=== PATIENT | male | born 1970 | race Caucasian/White ===

== ENCOUNTER 2018-06-06 12:16 | Emergency (ER) | payer BC, OTHER ==
--- NOTE | 2018-06-06 13:06 | EDM.PDOC ---
ED HPI GENERAL MEDICAL PROBLEM - General Chief Complaint: Respiratory Problem Stated Complaint: HEART ISSUES Time Seen by Provider: 06/06/18 13:06 Source of Information: Reports: Patient History Limitations: Reports: No Limitations - History of Present Illness INITIAL COMMENTS - FREE TEXT/NARRATIVE: 47-year-old male presents the ED with severe paroxysmal cough. Patient states she's been coughing for close to a month but getting worse instead of better. Not bringing up much sputum production. Coughing until he throws up o He's lost most of his breakfast and dinner today. Intermittent fever and some chills and night sweats. States he is currently coughing so hard that he has torn the muscles in his upper abdominal wall and can barely sit or stand fully erect. Bilateral lower ribs hurt quite badly from coughing so much. He denies any hemoptysis. He states he's never had a cough like this. Currently working down in [employer] in the [employer]. Patient is still a smoker approximately a pack per day. He states he is trying to quit he will use to smoke 3 packs a day. Onset: Other (Cough started about a month ago.) Onset Date: 05/06/18 Duration: Week(s):, Getting Worse Location: Reports: Chest (Severe paroxysmal nonproductive cough to the point of emesis and severe pain throughout his abdominal wall musculature and chest and ribs.) Quality: Reports: Ache, Other (Joao pain pulling sharp stabbing in his abdominal wall from coughing so hard) Severity: Severe Improves with: Reports: None Worsens with: Reports: Other Context: Reports: Sick Contact ([employer]). Denies: Trauma, Other Associated Symptoms: Reports: Chest Pain, Cough (From coughing so hard), Diaphoresis (Night sweats), Fever/Chills, Loss of Appetite, Malaise, Nausea/ Vomiting, Shortness of Breath, Weakness. 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.) Chest Pain Score (Numeric/FACES): 7 - Related Data Allergies Allergy/AdvReac Type Severity Reaction Status Date / Time No Known Allergies Allergy Verified 06/06/18 12:29 Home Meds: Home Meds Doxycycline [Vibramycin] 100 mg PO BID #24 cap 06/06/18 [Rx] Fluticasone Propionate [Flovent HFA 110 MCG] 2 puff INH QID #1 mdi 06/06/18 [Rx] Hydrocodone/Chlorphen P-Stirex [Tussionex Pennkinetic Susp] 5 ml PO Q12H PRN # 60 ml 06/06/18 [Rx] metFORMIN [Glucophage] 500 mg PO BIDMEALS 06/06/18 [History] oxyCODONE HCl/Acetaminophen [Percocet 10-325 mg Tablet] 1 each PO Q4H #20 tablet 06/06/18 [Rx] predniSONE [Prednisone] 20 mg PO BID #14 tablet 06/06/18 [Rx] Past Medical History Cardiovascular History: Reports: Heart Murmur, Other (See Below) (Recently told that he had a heart murmur.) Social & Family History - Tobacco Use Smoking Status *Q: Current Every Day Smoker Years of Tobacco use: 30 Packs/Tins Daily: 1 - Caffeine Use Caffeine Use: Reports: Soda - Recreational Drug Use Recreational Drug Use: Yes Drug Use in Last 12 Months: Yes Recreational Drug Type: Reports: Marijuana/Hashish Recreational Drug Use Frequency: Daily - Living Situation & Occupation Living situation: Reports: Single Occupation: Employed ED ROS GENERAL - Review of Systems Review Of Systems: See Below Constitutional: Reports: Chills, Malaise, Weakness, Fatigue, Decreased Appetite. Denies: Fever HEENT: Reports: No Symptoms, Sinus Problem Respiratory: Reports: Shortness of Breath, Wheezing, Cough. Denies: Pleuritic Chest Pain Cardiovascular: Reports: Chest Pain, Blood Pressure Problem (From coughing so hard.), Dyspnea on Exertion, Lightheadedness. Denies: Claudication, Edema (At times from coughing so hard he nearly passes out), Orthopnea Endocrine: Reports: Fatigue GI/Abdominal: Reports: Abdominal Pain (Diffuse abdominal wall pain from coughing so much.) : Reports: No Symptoms Musculoskeletal: Reports: Back Pain Skin: Reports: No Symptoms Neurological: Reports: No Symptoms Psychiatric: Reports: No Symptoms ED EXAM, GENERAL - Physical Exam Exam: See Below Exam Limited By: No Limitations General Appearance: Alert, WD/WN, No Apparent Distress, Severe Distress (He is vomiting at the time of exam. Comparing of severe abdominal wall pain from coughing so much. Anytime he tries to take a deep breath he starts coughing.) Eye Exam: Bilateral Eye: Normal Inspection Ears: Normal TMs Nose: Nasal Swelling (Marked swelling of the turbinates bilaterally.) Throat/Mouth: Normal Inspection, Normal Lips, Normal Oropharynx Head: Atraumatic, Normocephalic Neck: Normal Inspection, Supple, Non-Tender, Full Range of Motion. No: Lymphadenopathy (L), Lymphadenopathy (R) Respiratory/Chest: Respiratory Distress, Decreased Breath Sounds ( Operations can take a full deep breath because he starts coughing right away decreased breath sounds to the lower 20% of lung miles bilaterally ), Wheezing, Splinting (Mild tachypnea at rest.). No: Rales, Rhonchi Cardiovascular: Normal Peripheral Pulses, Regular Rate, Rhythm, No Edema, No Gallop, No Murmur (Grade 1/6 systolic ejection murmur at the left lower sternal border.) Peripheral Pulses: 3+: Posterior Tibial (L), Posterior Tibial (R), Dorsalis Pedis (L), Dorsalis Pedis (R) GI/Abdominal: Other (Diffuse abdominal wall tenderness particularly right upper quadrant and left upper quadrant i.e. external obliques where they insert onto the ribs are very tender to touch. It is severely obese.) Back Exam: Normal Inspection, Full Range of Motion. No: CVA Tenderness (L), CVA Tenderness (R) Extremities: Normal Inspection, Normal Range of Motion, Non-Tender, No Pedal Edema Neurological: Alert, Oriented, CN II-XII Intact, Normal Cognition Skin Exam: Warm, Dry, Normal Color, No Rash EKG INTERPRETATION EKG Date: 06/06/18 Time: 12:25 Rhythm: NSR Rate (Beats/Min): 70 [place]: Normal P-Wave: Enlarged (Left atrial hypertrophy pattern) QRS: Other (Q waves V1 and V2 consider old anteroseptal myocardial infarction) ST-T: Normal QT: Normal EKG Interpretation Comments: Abnormal ECG Course - Vital Signs Last Recorded V/S: Last Vital Signs Temp 36.2 C 06/06/18 12:27 Pulse 70 06/06/18 12:27 Resp 18 06/06/18 12:27 BP 173/86 H 06/06/18 12:27 Pulse Ox 94 L 06/06/18 13:40 - Orders/Labs/Meds Orders: Active Orders 24 hr Category Date Time Status EKG Documentation Completion [RC] ASDIRECTED Care 06/06/18 13:33 Active RT Aerosol Therapy [RC] ASDIRECTED Care 06/06/18 13:11 Active Chest 2V [CR] Stat Exams 06/06/18 13:12 Taken EKG 12 Lead [EK] Stat Ther 06/06/18 13:33 Ordered Labs: Laboratory Tests 06/06/18 06/06/18 06/06/18 Range/Units 13:20 13:20 13:20 WBC 10.53 H (4.23-9.07) K/mm3 RBC 5.33 (4.63-6.08) M/mm3 Hgb 15.3 (13.7-17.5) gm/L Hct 46.4 (40.1-51.0) % MCV 87.1 (79.0-92.2) fl MCH 28.7 (25.7-32.2) pg MCHC 33.0 (32.2-35.5) g/dl RDW Std Deviation 45.1 H (35.1-43.9) fL Plt Count 303 (163-337) K/mm3 MPV 9.8 (9.4-12.3) fl Neutrophils % (Manual) 62 H (40-60) % Band Neutrophils % 0 (0-10) % Lymphocytes % (Manual) 27 (20-40) % Atypical Lymphs % 0 % Monocytes % (Manual) 10 (2-10) % Eosinophils % (Manual) 1 (0.8-7.0) % Basophils % (Manual) 0 L (0.2-1.2) Platelet Estimate Adequate RBC Morph Comment Normal Sodium 139 (136-145) mEq/L Potassium 3.9 (3.5-5.1) mEq/L Chloride 101 (98-107) mEq/L Carbon Dioxide 26 (21-32) mEq/L Anion Gap 15.9 H (5-15) BUN 15 (7-18) mg/dL Creatinine 1.1 (0.7-1.3) mg/dL Est Cr Clr Drug Dosing 87.56 mL/min Estimated GFR (MDRD) > 60 (>60) mL/min BUN/Creatinine Ratio 13.6 L (14-18) Glucose 135 H (74-106) mg/dL Calcium 9.4 (8.5-10.1) mg/dL Total Bilirubin 0.9 (0.2-1.0) mg/dL AST 25 (15-37) U/L ALT 42 (16-63) U/L Alkaline Phosphatase 100 (46-116) U/L NT-Pro-B Natriuret Pep 33 (0-125) pg/mL Total Protein 7.7 (6.4-8.2) g/dl Albumin 4.0 (3.4-5.0) g/dl Globulin 3.7 gm/dL Albumin/Globulin Ratio 1.1 (1-2) Mycoplasma pneumon IgM Negative (NEGATIVE) Meds: Medications Discontinued Medications Generic Name Dose Route Start Last Admin Trade Name Freq PRN Reason Stop Dose Admin Albuterol/Ipratropium 3 ml 06/06/18 13:11 06/06/18 13:37 Duoneb 3.0-0.5 Mg/3 Ml NEB 06/06/18 13:12 3 ml ONETIME ONE Administration Hydromorphone HCl 1 mg 06/06/18 13:11 06/06/18 13:27 Dilaudid IVPUSH 06/06/18 13:12 1 mg ONETIME ONE Administration Hydromorphone HCl 1 mg 06/06/18 14:28 06/06/18 14:42 Dilaudid IVPUSH 06/06/18 14:29 1 mg ONETIME ONE Administration Dextrose/Sodium Chloride 1,000 mls @ 500 mls/hr 06/06/18 13:15 06/06/18 13:26 Dextrose 5%-Normal Saline IV 500 mls/hr ASDIRECTED MARC Administration Metoclopramide HCl 10 mg 06/06/18 13:11 06/06/18 13:26 Reglan IVPUSH 06/06/18 13:12 10 mg ONETIME ONE Administration - Radiology Interpretation Free Text/Narrative:: 47-year-old male presents the ED with a severe paroxysmal relatively nonproductive cough for the better part of the month. States cough is getting worse and set of better. Rarely brings up any sputum. No hemoptysis. Intermittent night sweats perhaps some chills. He is very nasally congested and is aware of a postnasal drip. He has been taking DayQuil daily. Now coughing to the point of emesis. Complaining of diffuse abdominal wall tenderness in the distribution of the external oblique muscles from coughing so much. Coughing is also aggravating his chest wall and ribs from coughing so much. Today's coughing to the point of emesis. Has not been able to keep down his breakfast worse dinner. Plan IV D5 normal saline at 500 mils an hour. Given Dilaudid 1 mg IV and Reglan 10 mg IV and will receive a DuoNeb. Two-view chest x-ray to be obtained lab work to be done to include a mycoplasma titer. Clinically he does not have influenza. - Re-Assessments/Exams Free Text/Narrative Re-Assessment/Exam: 06/06/18 14:37 2 view chest x-ray does not show any sign of pneumonia. is still coughing paroxysmal we will repeat Dilaudid 1 mg IV as he is well over 300 pounds 06/06/18 15:24 White count is 10.53 with 60% neutrophils and no band cells. Hemoglobin is 15.3 with hematocrit of 46.4. Platelet count is 303,000. Sodium 139 with potassium of 3.9. Chloride 11 with a bicarbonate 26. And a gap is slightly elevated at 15.9. BUN is 15 with granular 1.1. GFR is greater than 60. Glucose is 135 with a calcium of 9.4. Liver function is normal. BNP is 33. Total protein 7.7 with an albumin fraction of 4.0. Mycoplasma pneumonia testing is 06/06/18 16:12 mycoplasma Titre is negative. Decision made because he is cut sinus congestion and postnasal drip to placement doxycycline 100 mg twice daily for the next 12 days to help clear up this infection. 2 we'll be a Flovent aerosol inhaler 2 puffs every 4 hours while awake to suppress his cough and reduce irritant receptor cough. I'm going to also place him on prednisone 20 mg twice a day for 7 days. Cough syrup will be Tussionex syrup 10 mils twice daily for cough relief. Departure - Departure Time of Disposition: 16:20 Disposition: Home, Self-Care 01 Condition: Fair Clinical Impression: Bronchitis Sinusitis Qualifiers: Sinusitis location: unspecified location Chronicity: acute Recurrence: non- recurrent Qualified Code(s): J01.90 - Acute sinusitis, unspecified Strain of abdominal wall Qualifiers: Encounter type: initial encounter Qualified Code(s): S39.011A - Strain of muscle, fascia and tendon of abdomen, initial encounter - Discharge Information *PRESCRIPTION DRUG MONITORING PROGRAM REVIEWED*: Not Applicable *COPY OF PRESCRIPTION DRUG MONITORING REPORT IN PATIENT FLORENTIN: Not Applicable Prescriptions: Doxycycline [Vibramycin] 100 mg PO BID #24 cap Fluticasone Propionate [Flovent HFA 110 MCG] 2 puff INH QID #1 mdi Hydrocodone/Chlorphen P-Stirex [Tussionex Pennkinetic Susp] 5 ml PO Q12H PRN # 60 ml PRN Reason: Cough relief oxyCODONE HCl/Acetaminophen [Percocet 10-325 mg Tablet] 1 each PO Q4H #20 tablet predniSONE [Prednisone] 20 mg PO BID #14 tablet Instructions: Acute Bronchitis, Adult, [id number] Referrals: PCP,None [Primary Care Provider] - Forms: ED Department Discharge, ED Return to Work/School Form Additional Instructions: Evaluation the emergency room today in regards to diffuse abdominal pain due to muscle tears in your abdominal wall from coughing excessively. By history you have been coughing excessively for over a month. Chest x-ray done does not reveal any pneumonia. The infection appears to be viral in cause. There is an associated sinus congestion and infection with postnasal drip. Treatment is to be cough suppression with cough syrup Tussionex 5 mils twice daily plan on taking good hour before going to bed as it takes an hour to work. Use antibiotic doxycycline 100 mg twice daily for the next 12 days to clear up any infection. Particularily in the sinuses. Take prednisone 20 mg with breakfast and supper for 7 days to act as a anti-inflammatory for bronchial tubes. Suggest Flovent metered-dose inhaler 2 puffs 4 times daily until you're no longer coughing for 2-3 days at which time he can reduce it to twice daily for a couple of days and then off. As the medicine that usually works the best to suppress severe chronic cough. Percocet 10/325 mg tablets are also provided one every 4-6 hours needed for relief of abdominal wall pain and will also work as a cough suppressant suggest off work for the next 3 days. Note written to this effect - My Orders Last 24 Hours: My Active Orders 06/06/18 13:11 RT Aerosol Therapy [RC] ASDIRECTED 06/06/18 13:12 Chest 2V [CR] Stat 06/06/18 13:33 EKG Documentation Completion [RC] ASDIRECTED EKG 12 Lead [EK] Stat - Assessment/Plan Last 24 Hours: My Active Orders 06/06/18 13:11 RT Aerosol Therapy [RC] ASDIRECTED 06/06/18 13:12 Chest 2V [CR] Stat 06/06/18 13:33 EKG Documentation Completion [RC] ASDIRECTED EKG 12 Lead [EK] Stat
[2018-06-06] MEDS ORDERED: Metoclopramide 10 MG/2 ML SDV IVPUSH ONE (13:11)
[2018-06-06] MEDS ORDERED: HYDROmorphone 1 MG/ML Syringe IVPUSH ONE ×2 (13:11→14:28)
[2018-06-06] MEDS ORDERED: Albuterol/Ipratropium 3.0-0.5 MG/3 ML Neb Soln NEB ONE (13:11)
[2018-06-06] MEDS ORDERED: Dextrose 5%-0.9% NaCl 1,000 ML IV SCH (13:15)
--- NOTE | 2018-06-07 09:39 | CR ---
Chest: Two views of the chest were obtained. Comparison: Prior chest x-ray of 05/01/10. Heart size and mediastinum are normal. Lungs are clear. Bony structures are unremarkable. Surgical clips are seen within the upper abdomen. Impression: 1. Nothing acute is appreciated on two-view chest x-ray. Diagnostic code #1
== END 2018-06-06 16:36 | disposition home or self-care (01) ==
LOC: JD.ED 12:16
DX: J40 Bronchitis, not specified as acute or chronic (principal); J01.90 Acute sinusitis, unspecified; S39.011A Strain of muscle, fascia and tendon of abdomen, initial encounter; F17.210 Nicotine dependence, cigarettes, uncomplicated; X50.9XXA Other and unspecified overexertion or strenuous movements or postures, initial encounter
CPT/HCPCS: 36415; 71046; 80053; 83880; 85007; 85027; 86738; 93005; 94640; 96361; 96374; 96375; 96376; 99284; J1170; J2765; J7042; J7620-GY